=== PATIENT | female | born 1955 | race Caucasian/White ===

== ENCOUNTER → 2017-01-03 | Day surgery (SDC) | payer MEDICARE, OTHER ==
[~2017-01-03] VITALS: Ht 156.2 cm; Wt 88.2 kg
[~2017-01-03] MED LIST: AMLODIPINE-BEN1 EACH PO; ARIPIPRAZOLE2 MG PO; FETZIMA80 MG PO; FLEXERIL10 MG PO; FLONASE 50 MCG/16 GM NOSE; ISOSORBIDE MONO60 MG PO; LOPRESSOR25 MG PO; MOBIC7.5 MG PO; PERCOCET 5-3251 EACH PO
--- NOTE | ~2017-01-03 | OR ---
PATIENT'S NAME: YO ARECHIGA [facility] AGE: 61 Y [address] 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 POSTOPERATIVE DIAGNOSES: 1. Left L4-L5 synovial cyst. 2. Left L4-L5 lateral recess stenosis. DESCRIPTION OF PROCEDURE: Under general anesthesia, the patient was positioned prone. The back was prepped and draped in the usual fashion. The C-arm was brought in. The spinal needle was then placed one fingerbreadth from the midline to the left and the C-arm was used for fluoroscopy and the needle was positioned such that it was directly opposite the L4-L5 disk space. This position was marked on the skin. Next, the back was then draped in the usual manner. Next, a 2 cm incision was then carried out centered on the spot where the needle had gone in. The K-wire was passed through the spot to rest on the inferior part of the lamina of L4 directly opposite the L4-L5 disk space. Its position was ascertained with fluoroscopy. Next, muscle dilators were sequentially passed over the K-wire until we got to the 18 mm dilator. On each passage, we used fluoroscopy to make sure that the trajectory as well as the position of the tendon was directly opposite the L4-L5 disk space. Finally, the tubular retractor was passed over the muscle dilator. It was also fluoroscoped to make sure it was centered at the L4-L5 disk space. It was then attached to the flexible arm with a flexible arm retractor. Flexible arm was then tightened. The muscle dilators and K-wire were removed. The C- arm was removed and the microscope was then brought in. With the aid of the microscope, we removed the soft tissue from the inferior part of the lamina of L4; and with the aid of the microscope, we then drilled off the inferior part of the lamina of L4. Following that, we removed the yellow ligament. On removing the yellow ligament, there was quite a bit of adhesions to the dura and so the cyst was coming from the facet joint. We went ahead and removed the cyst piecemeal and dissected out the adhesions from both the dura as well as the nerve root. Follow the nerve root all the way out into the neural foramen. Findings were in addition to the synovial cyst, which we excised. There was also hypertrophy of the facet joint. We went ahead and did a medial facetectomy and made sure that the nerve root was free, there was no pressure on the nerve root and what we saw after we had completely decompressed the nerve root was an indentation in the nerve root which was most likely where PATIENT'S NAME: YO ARECHIGA [facility] AGE: 61 Y [address] ROOM: [place] [address] LOCATION: [facility] – [place] ADMIT DATE: 01/03/2017 OR/Procedure Report DISCHARGE DATE: FAMILY PHYSICIAN: TEMO BARBA MD ATTENDING PHYSICIAN: Niharika Guerrero the cyst was pressing on the nerve root. After these had been carried out, the wound was thoroughly irrigated with bacitracin irrigation and then closed in layers in the usual fashion. We attempted putting the 3-0 Vicryl to suture the fascia and after that we then used subcuticular stitches to bring the skin edges together as well as Steri-Strips. The patient tolerated the procedure well and was taken to the outpatient waiting area. OPERATION PROPOSED AND PERFORMED: 1. Left L4-L5 partial hemilaminectomy and excision of synovial cyst. 2. Left L4-L5 partial hemilaminectomy with medial facetectomy and foraminotomy. 3. Decompression of the lateral recess at L4-L5 on the left side. 4. Microscope. 5. Fluoroscopy with interpretation. MD GERRY SMITH/nicolettel /[id number] d: 01/03/17 2256 t: 01/08/17 1206, OPERATIVE SUMMARY
== END | disposition disaster alternative care site (69) ==
LOC: GPOC 12-08 13:00 → GSDC 10:09
PROC: 00BY0ZZ Excision of Lumbar Spinal Cord, Open Approach (ICD-10-PCS; principal; 2017-01-03)
PROC: 0SB20ZZ Excision of Lumbar Vertebral Disc, Open Approach (ICD-10-PCS; 2017-01-03)
PROC: 01NB0ZZ Release Lumbar Nerve, Open Approach (ICD-10-PCS; 2017-01-03)
DX: M48.06 Spinal stenosis, lumbar region (principal); M71.38 Other bursal cyst, other site; M54.16 Radiculopathy, lumbar region
CPT/HCPCS: J0690; J7030; J7120